=== PATIENT | female | born 1955 | race Caucasian/White ===

== ENCOUNTER 2020-05-29 12:35 | Outpatient (CLI) | payer MEDICARE, OTHER ==
--- NOTE | 2020-05-29 15:17 | RAD ---
LEFT HAND THREE VIEWS: History: Hand pain. FINDINGS: Osteoarthritic changes of the hand. These changes are particularly pronounced at the first carpal met acarpal joint space. Some mild arthritic change of the distal interphalangeal joints. No erosive jacobson ge. Mild radiocarpal degenerative change and triscaphe joint changes. IMPRESSION: Osteoarthritic changes of the hand, mainly related to first carpal metacarpal joint space and first m etacarpal phalangeal joint of the thumb. POS: ZEFERINO
--- NOTE | 2020-05-29 15:19 | RAD ---
RIGHT HAND THREE VIEWS: History: Hand pain FINDINGS: There are marked osteoarthritic changes of the first carpal metacarpal joint space. Some mild changes of the triscaphe and distal interphalangeal joints. No erosive change. IMPRESSION: Osteoarthritic change of the hand, mainly confined to the first carpal metacarpal joint space. POS: ZEFERINO
--- NOTE | 2020-05-29 15:21 | RAD ---
LUMBAR SPINE FOUR VIEWS: History: Low back pain and pain radiating down the right leg. FINDINGS: Vertebral bodies are normal in height. Degenerative osteophytic changes are seen along the course of the spine with mild to moderate disc narrowing at L1-2 and L2-3. Some minimal retrolisthesis at these levels. Moderate degenerative facet changes are seen in the lower lumbar spine with a minimal spondy lolisthesis of L4 on L5 associated with mild disc narrowing. Pedicles appear intact. IMPRESSION: Moderate osteoarthritic change of the spine. POS: ZEFERINO
== END 2020-05-29 12:36 | disposition home or self-care (01) ==
LOC: BICRAD 12:35
PROVIDERS: ATTEND Internal Medicine Rheumatology
DX: M54.5 Low back pain (principal); M18.0 Bilateral primary osteoarthritis of first carpometacarpal joints; M47.816 Spondylosis without myelopathy or radiculopathy, lumbar region
CPT/HCPCS: 72110